=== PATIENT | female | born 1955 | race Caucasian/White ===

== ENCOUNTER 2017-11-29 09:32 | Day surgery (SDC) | payer MEDICARE, OTHER ==
[~2017-11-29 09:32] MED LIST: CEFAZOLIN 1 GM/50 ML (PMX) 50 ML IVPB; SOD CHLORIDE 0.9% 1,000 ML IV
[2017-11-29] MEDS ORDERED: PROPOFOL 20 ML (12:10)
[2017-11-29] MEDS ORDERED: MIDAZOLAM 1 MG/ML 2 ML INJ (12:10)
[2017-11-29] MEDS ORDERED: ROPIVACAINE 0.5 % 30 ML VIAL (12:11)
[2017-11-29] MEDS ORDERED: ONDANSETRON 4 MG INJ (12:11)
[2017-11-29] MEDS ORDERED: METOCLOPRAMIDE 10 MG INJ (12:11)
[2017-11-29] MEDS ORDERED: CEFAZOLIN 1 GM INJ (12:34)
[2017-11-29] MEDS ORDERED: HYDROmorphONE 2 MG/ML SYG (12:53)
[2017-11-29] MEDS ORDERED: DIPHENHYDRAMINE 50 MG INJ IV (13:00)
[2017-11-29] MEDS ORDERED: hydrALAzine 20 MG INJ IV (13:00)
[2017-11-29] MEDS ORDERED: LABETALOL HCL 20MG INJ IV (13:00)
[2017-11-29] MEDS ORDERED: MIDAZOLAM 1 MG/ML 2 ML INJ IV (13:00)
[2017-11-29] MEDS ORDERED: ONDANSETRON 4 MG INJ IV (13:00)
[2017-11-29] MEDS ORDERED: HYDROmorphONE (0.2 MG/ML) 10ML SYG IV ×3 (13:00)
[2017-11-29] MEDS ORDERED: OXYCODONE/ACETAMINOPHEN (5/325) TAB PO ×2 (13:00)
[2017-11-29] MEDS ORDERED: KETOROLAC 30 MG INJ (13:02)
[2017-11-29] MEDS ORDERED: NEOSTIGMINE 3 MG/3 ML SYRINGE (13:02)
[2017-11-29] MEDS ORDERED: HYDROCODONE/APAP (5/325) TAB PO (13:30)
== END 2017-11-29 15:00 | disposition home or self-care (01) ==
LOC: SDS 09:32
DX: K80.10 Calculus of gallbladder with chronic cholecystitis without obstruction (principal)
CPT/HCPCS: 47562; 88304